=== PATIENT | male | born 1965 | race Caucasian/White ===

== ENCOUNTER 2021-08-26 00:55 | Inpatient (IN) | payer BC ==
[~2021-08-26] VITALS: Ht 177.8 cm; Wt 111.0 kg
[2021-08-26] MEDS ORDERED: dexamethasone sod phosphate 10mg/ml inj IV STA (01:22)
[2021-08-26] MEDS ORDERED: iohexol 350MG/ML 100ml bottle IV ONE (03:08)
[2021-08-26] MEDS ORDERED: HYDROcodone/acetaminophen 10/325mg tab PO PRN (03:20)
[2021-08-26] MEDS ORDERED: ondansetron 4mg rapidly disintigrating tab PO PRN (03:20)
[2021-08-26] MEDS ORDERED: ondansetron/PF 4mg/2ml inj IV PRN (03:20)
[2021-08-26] MEDS ORDERED: magnesium hydroxide 30ml (MOM) UD suspension PO PRN (03:20)
[2021-08-26] MEDS ORDERED: diphenhydrAMINE 50 mg/ml inj IV PRN (03:20)
[2021-08-26] MEDS ORDERED: mag hydrox/Alum hydrox/simeth 30ml oral suspension PO PRN (03:20)
[2021-08-26] MEDS ORDERED: diphenhydrAMINE 25mg capsule PO PRN (03:20)
[2021-08-26] MEDS ORDERED: acetaminophen 650mg rectal suppository RC PRN (03:20)
[2021-08-26] MEDS ORDERED: HYDROmorphone inj. 0.5 MG/0.5 ML DISP.SYRIN IV PRN (03:20)
[2021-08-26] MEDS ORDERED: HYDROcodone/acetaminophen 5mg/325mg tablet PO PRN (03:20)
[2021-08-26] MEDS ORDERED: acetaminophen 325mg tablet PO PRN ×2 (03:20)
[2021-08-26] MEDS ORDERED: bisacodyl 10mg suppository rectal RC PRN (03:20)
[2021-08-26] MEDS ORDERED: morphine 2 MG/ML inj. syringe IV PRN ×2 (03:20)
[2021-08-26 03:28] LABS: BASOPHILS % (AUTO) 0.7 % (0-1); EOSINOPHILS % (AUTO) 0 % (0-6); HEMATOCRIT 39.2 % (42.0-52.0); HEMOGLOBIN 13.4 g/dl (14.0-17.9); LYMPHOCYTES # (AUTO) 0.3 X10'3 (1.1-4.8); LYMPHOCYTES % (AUTO) 4.4 % (21-51); MEAN CORPUSCULAR HGB CONC 34.2 g/dL (33.0-36.5); MEAN CORPUSCULAR VOLUME 96.5 FL (78-98); MEAN PLATELET VOLUME 7.6 FL (7.4-10.4); MONOCYTES % (AUTO) 0.8 % (2-12); NEUTROPHILS # (AUTO) 5.9 X10'3 (1.8-7.7); NEUTROPHILS % (AUTO) 94.1 % (42-75); PLATELET COUNT 183 X10'3 (140-440); RED BLOOD COUNT 4.07 X10'6 (4.70-6.10); RED CELL DISTRIBUTION WIDTH 14.1 % (11.5-14.5); WHITE BLOOD COUNT 6.3 X10'3 (4.5-11.0)
[2021-08-26] MEDS: normal saline 1000ml 1,000 ML IV SCH ×3 (03:43→23:20)
[2021-08-26 03:51] LABS: ALANINE AMINOTRANSFERASE 50 U/L (12-78); ALBUMIN 2.8 G/DL (3.4-5.0); ALBUMIN/GLOBULIN RATIO 0.7 (1.1-1.5); ALKALINE PHOSPHATASE 75 IU/L (46-116); ANION GAP 13 (8-16); ASPARTATE AMINO TRANSFERASE 36 U/L (10-37); BILIRUBIN,TOTAL 0.6 MG/DL (0.1-1.0); BLOOD UREA NITROGEN 25 MG/DL (7-18); BUN/CREATININE RATIO 20.2 (5.4-32.0); CALCIUM 9.1 MG/DL (8.5-10.1); CHLORIDE 102 MMOL/L (99-107); CREATININE 1.24 MG/DL (0.60-1.10); GLUCOSE 147 MG/DL (70-104); POTASSIUM 3.3 MMOL/L (3.5-5.1); SODIUM 141 MMOL/L (135-145); TOTAL CARBON DIOXIDE 26.2 MMOL/L (24-32); TOTAL PROTEIN 7.1 G/DL (6.4-8.2); eGFR 60 ML/MIN
[2021-08-26 04:21] LABS: LACTATE DEHYDROGENASE 236 U/L (85-227)
[2021-08-26 04:28] LABS: APTT 31 SECONDS (22-32)
[2021-08-26 04:43] LABS: FERRITIN 1640 NG/ML (26-388)
[2021-08-26 04:44] LABS: C-REACTIVE PROTEIN 36.97 MG/DL (0.0-0.5)
[2021-08-26 04:45] VITALS: BP 121/83
[2021-08-26] MEDS ORDERED: LISI10TA27 PO (04:45)
[2021-08-26] MEDS ORDERED: ESCI20TA39 PO (04:45)
[2021-08-26] MEDS ORDERED: CHLO25TA10 PO (04:45)
[2021-08-26] MEDS ORDERED: ATOR20TA66 PO (04:45)
[2021-08-26] MEDS ORDERED: BUPR-317 PO (04:45)
[2021-08-26 05:02] LABS: TOTAL CELLS COUNTED 100
[2021-08-26 05:03] LABS: PLATELET ESTIMATE NORMAL
--- NOTE | 2021-08-26 05:35 | NUR ---
ARRIVED VIA W/C FROM ED AT 0445 AND AMBULATED TO THE BED. NOTABLY SOB AND PLACED ON 4L UNTIL O2 SATS AT 94%. PATIENT A&0X4, DENIES ANY PAIN. VITAL SIGNS WNL'S. CALL LIGHT EXPLAINED AND IN REACH OF PATIENT. URINAL GIVEN AND ENC'D TO USE IT.
[2021-08-26 06:00] LABS: HEMOGLOBIN A1C 5.7 % (4.5-6.2)
--- NOTE | 2021-08-26 06:50 | NUR ---
Patient in room ORTH[facility] 4024. I have received report from Joan MAURICIO and had the opportunity to ask questions and assume patient care.
--- NOTE | 2021-08-26 07:06 | NUR ---
Problems reprioritized. Patient report given, questions answered & plan of care reviewed with TIFFANIE MAURICIO.
[2021-08-26] MEDS ORDERED: potassium Cl 40MEQ/1/2NS 520ml 520 ML IV PRN ×3 (07:10→11:05)
[2021-08-26] MEDS ORDERED: potassium Cl 20 mEq SR tablet PO PRN ×3 (07:10→11:05)
[2021-08-26 07:27] LABS: LIPASE 118 U/L (73-393); MAGNESIUM 1.9 MG/DL (1.5-2.4); PHOSPHORUS 1.9 MG/DL (2.3-4.5)
[2021-08-26] MEDS: pantoprazole 40mg Tablet.DR PO SCH (07:30)
[2021-08-26] MEDS ORDERED: dexamethasone 4mg/ml inj IV SCH (08:00)
[2021-08-26] MEDS: K and/or MAG REPLACEMENT MC SCH ×3 (08:00→20:00)
[2021-08-26] MEDS: dexamethasone inj 8 MG in normal saline 50ml IV soln 50 ML IV SCH ×2 (08:50→20:09)
[2021-08-26] MEDS: docusate sod 100mg capsule PO SCH ×2 (08:51→20:09)
[2021-08-26] MEDS: enoxaparin 40mg/0.4ml syringe SUBCUT SCH ×2 (08:51→20:09)
[2021-08-26 10:00] VITALS: BP 106/79
[2021-08-26] MEDS ORDERED: magnesium Cl slow-release 64mg tablet PO PRN (11:05)
[2021-08-26] MEDS ORDERED: magnesium 4gm in 100ml NS 100 ML IV PRN (11:05)
[2021-08-26] MEDS ORDERED: REMDESIVIR INJ 200 MG in normal saline 100ml IV soln 100 ML IV ONE (11:05)
[2021-08-26] MEDS ORDERED: ALBUTEROL INHALER 1 PUFF/90 MCG INHALER IH PRN (11:10)
[2021-08-26] MEDS: azithromycin 250mg tablet PO SCH (11:15)
[2021-08-26] MEDS: benzonatate 100mg capsule PO PRN ×2 (11:16→21:16)
[2021-08-26] MEDS: CefTRIAXone/D5W-Rocephin 1gm 50 ML IV SCH (12:35)
[2021-08-26] MEDS: ALBUTEROL INHALER 1 PUFF/90 MCG INHALER IH PRN (12:40)
[2021-08-26 14:00] VITALS: BP 126/80
[2021-08-26] MEDS: potassium Cl 20 mEq SR tablet PO PRN ×2 (15:43→21:17)
[2021-08-26 18:00] VITALS: BP 136/76
[2021-08-26 21:35] VITALS: BP 153/81
[2021-08-27 02:00] VITALS: BP 122/82
[2021-08-27] MEDS: guaiFENesin/DM 10ml UD oral syrup PO PRN ×2 (03:05→19:29)
[2021-08-27] MEDS: normal saline 1000ml 1,000 ML IV SCH ×2 (03:05→19:20)
[2021-08-27 06:00] VITALS: BP 120/78
--- NOTE | 2021-08-27 06:25 | NUR ---
RECEIVED REPORT FROM ALISON, RN
[2021-08-27 07:24] LABS: EOSINOPHILS % (AUTO) 0 % (0-6); HEMATOCRIT 35.6 % (42.0-52.0); HEMOGLOBIN 12.2 g/dl (14.0-17.9); LYMPHOCYTES # (AUTO) 0.3 X10'3 (1.1-4.8)
[2021-08-27 07:25] LABS: BASOPHILS % (AUTO) 0.1 % (0-1); LYMPHOCYTES % (AUTO) 3.7 % (21-51); MEAN CORPUSCULAR HEMOGLOBIN 32.9 PG (27.0-31.0); MEAN CORPUSCULAR HGB CONC 34.2 g/dL (33.0-36.5); MEAN CORPUSCULAR VOLUME 96.1 FL (78-98); MEAN PLATELET VOLUME 8.4 FL (7.4-10.4); MONOCYTES # (AUTO) 0.1 X10'3 (0-0.9); MONOCYTES % (AUTO) 0.9 % (2-12); NEUTROPHILS # (AUTO) 8.5 X10'3 (1.8-7.7); NEUTROPHILS % (AUTO) 95.3 % (42-75); PLATELET COUNT 234 X10'3 (140-440); RED CELL DISTRIBUTION WIDTH 14.4 % (11.5-14.5); WHITE BLOOD COUNT 8.9 X10'3 (4.5-11.0)
[2021-08-27] MEDS: benzonatate 100mg capsule PO PRN (07:39)
[2021-08-27] MEDS: chlorthalidone 25mg tablet PO SCH (07:40)
[2021-08-27] MEDS: lisinopril 10 MG tablet PO SCH (07:40)
[2021-08-27] MEDS: azithromycin 250mg tablet PO SCH (07:40)
[2021-08-27] MEDS: atorvastatin 20mg tablet PO SCH (07:41)
[2021-08-27] MEDS: pantoprazole 40mg Tablet.DR PO SCH (07:41)
[2021-08-27] MEDS: docusate sod 100mg capsule PO SCH ×2 (07:41→19:16)
[2021-08-27] MEDS: ESCITALOPRAM OXALATE 5 MG TABLET PO SCH (07:42)
[2021-08-27] MEDS: dexamethasone inj 8 MG in normal saline 50ml IV soln 50 ML IV SCH ×2 (07:43→19:10)
[2021-08-27] MEDS: enoxaparin 40mg/0.4ml syringe SUBCUT SCH ×2 (07:46→19:17)
[2021-08-27 07:56] LABS: ALANINE AMINOTRANSFERASE 49 U/L (12-78); ALBUMIN 2.3 G/DL (3.4-5.0); ALBUMIN/GLOBULIN RATIO 0.5 (1.1-1.5); ALKALINE PHOSPHATASE 63 IU/L (46-116); ANION GAP 13 (8-16); ASPARTATE AMINO TRANSFERASE 32 U/L (10-37); BILIRUBIN,TOTAL 0.3 MG/DL (0.1-1.0); BLOOD UREA NITROGEN 25 MG/DL (7-18); BUN/CREATININE RATIO 25.3 (5.4-32.0); CALCIUM 8.3 MG/DL (8.5-10.1); CHLORIDE 105 MMOL/L (99-107); CHOLESTEROL 131 MG/DL (0-200); CREATININE 0.99 MG/DL (0.60-1.10); D-DIMER 0.78 MG/L FEU (0-0.50); GLUCOSE 125 MG/DL (70-104); HDL CHOLESTEROL 26 MG/DL (35-60); LACTATE DEHYDROGENASE 250 U/L (85-227); LDL CHOLESTEROL 66 MG/DL (50-100); MAGNESIUM 2.1 MG/DL (1.5-2.4); PHOSPHORUS 2.4 MG/DL (2.3-4.5); POTASSIUM 3.8 MMOL/L (3.5-5.1); SODIUM 141 MMOL/L (135-145); TOTAL CARBON DIOXIDE 22.9 MMOL/L (24-32); TOTAL PROTEIN 6.9 G/DL (6.4-8.2); TRIGLYCERIDES 95 MG/DL (20-135); eGFR 78 ML/MIN
[2021-08-27] MEDS ORDERED: REMDESIVIR INJ 100 MG in normal saline 100ml IV soln 100 ML IV SCH (08:00)
[2021-08-27] MEDS: K and/or MAG REPLACEMENT MC SCH ×4 (08:00→20:00)
[2021-08-27] MEDS ORDERED: buproprion 150mg XL (24-hour) tablet PO SCH (08:00)
[2021-08-27 08:20] LABS: C-REACTIVE PROTEIN 29.15 MG/DL (0.0-0.5)
[2021-08-27] MEDS: CefTRIAXone/D5W-Rocephin 1gm 50 ML IV SCH (08:37)
[2021-08-27 10:00] VITALS: BP 107/64
[2021-08-27 14:00] VITALS: BP 108/73
--- NOTE | 2021-08-27 18:28 | NUR ---
gave report to lenny mcpherson
[2021-08-27 18:37] VITALS: BP 114/73
[2021-08-27] MEDS: temazepam 15mg capsule PO PRN (19:29)
[2021-08-27 22:03] VITALS: BP 102/64
[2021-08-28 02:00] VITALS: BP 107/72
[2021-08-28] MEDS: normal saline 1000ml 1,000 ML IV SCH ×2 (05:50→15:23)
[2021-08-28 06:00] VITALS: BP 106/71
--- NOTE | 2021-08-28 06:25 | NUR ---
Patient in room ORTHO 4024B. I have received report from HANG CROCKETT and had the opportunity to ask questions and assume patient care.
[2021-08-28 07:44] LABS: BASOPHILS % (AUTO) 0.2 % (0-1); EOSINOPHILS % (AUTO) 0 % (0-6); HEMATOCRIT 34.3 % (42.0-52.0); HEMOGLOBIN 11.8 g/dl (14.0-17.9); LYMPHOCYTES # (AUTO) 0.3 X10'3 (1.1-4.8); LYMPHOCYTES % (AUTO) 5.2 % (21-51); MEAN CORPUSCULAR HEMOGLOBIN 33.1 PG (27.0-31.0); MEAN CORPUSCULAR HGB CONC 34.3 g/dL (33.0-36.5); MEAN CORPUSCULAR VOLUME 96.4 FL (78-98); MONOCYTES # (AUTO) 0.1 X10'3 (0-0.9); MONOCYTES % (AUTO) 2.2 % (2-12); NEUTROPHILS # (AUTO) 5.1 X10'3 (1.8-7.7); NEUTROPHILS % (AUTO) 92.4 % (42-75); PLATELET COUNT 282 X10'3 (140-440); RED BLOOD COUNT 3.56 X10'6 (4.70-6.10); RED CELL DISTRIBUTION WIDTH 14.7 % (11.5-14.5); WHITE BLOOD COUNT 5.6 X10'3 (4.5-11.0)
[2021-08-28] MEDS: K and/or MAG REPLACEMENT MC SCH ×3 (08:00→20:00)
[2021-08-28] MEDS: buPROPion SR 150mg tablet PO SCH (08:34)
[2021-08-28] MEDS: chlorthalidone 25mg tablet PO SCH (08:35)
[2021-08-28] MEDS: pantoprazole 40mg Tablet.DR PO SCH (08:36)
[2021-08-28] MEDS: atorvastatin 20mg tablet PO SCH (08:36)
[2021-08-28] MEDS: lisinopril 10 MG tablet PO SCH (08:36)
[2021-08-28] MEDS: dexamethasone inj 8 MG in normal saline 50ml IV soln 50 ML IV SCH ×2 (08:37→20:23)
[2021-08-28] MEDS: docusate sod 100mg capsule PO SCH ×2 (08:37→20:00)
[2021-08-28] MEDS: azithromycin 250mg tablet PO SCH (08:40)
[2021-08-28] MEDS: ESCITALOPRAM OXALATE 5 MG TABLET PO SCH (08:41)
[2021-08-28] MEDS: enoxaparin 40mg/0.4ml syringe SUBCUT SCH ×2 (08:43→20:23)
[2021-08-28] MEDS: CefTRIAXone/D5W-Rocephin 1gm 50 ML IV SCH (08:44)
[2021-08-28 09:02] LABS: ALANINE AMINOTRANSFERASE 73 U/L (12-78); ALBUMIN 2.1 G/DL (3.4-5.0); ALBUMIN/GLOBULIN RATIO 0.5 (1.1-1.5); ALKALINE PHOSPHATASE 62 IU/L (46-116); ANION GAP 11 (8-16); ASPARTATE AMINO TRANSFERASE 49 U/L (10-37); BILIRUBIN,TOTAL 0.3 MG/DL (0.1-1.0); BLOOD UREA NITROGEN 27 MG/DL (7-18); BUN/CREATININE RATIO 26.7 (5.4-32.0); C-REACTIVE PROTEIN 13.41 MG/DL (0.0-0.5); CALCIUM 8.3 MG/DL (8.5-10.1); CHLORIDE 107 MMOL/L (99-107); CREATININE 1.01 MG/DL (0.60-1.10); GLUCOSE 122 MG/DL (70-104); LACTATE DEHYDROGENASE 270 U/L (85-227); MAGNESIUM 2.4 MG/DL (1.5-2.4); PHOSPHORUS 2.7 MG/DL (2.3-4.5); POTASSIUM 3.8 MMOL/L (3.5-5.1); SODIUM 142 MMOL/L (135-145); TOTAL CARBON DIOXIDE 24.4 MMOL/L (24-32); TOTAL PROTEIN 6.2 G/DL (6.4-8.2); eGFR 76 ML/MIN
[2021-08-28 10:00] VITALS: BP 106/68
[2021-08-28 10:42] LABS: D-DIMER 0.91 MG/L FEU (0-0.50)
[2021-08-28 14:00] VITALS: BP 121/84
[2021-08-28] MEDS: ALBUTEROL INHALER 1 PUFF/90 MCG INHALER IH PRN (14:32)
--- NOTE | 2021-08-28 18:16 | NUR ---
Problems reprioritized. Patient report given, questions answered & plan of care reviewed with HANG ROSAS.
[2021-08-28 18:30] VITALS: BP 122/80
[2021-08-28] MEDS ORDERED: REMDESIVIR INJ 200 MG in normal saline 100ml IV soln 100 ML IV ONE ×4 (19:10)
--- NOTE | 2021-08-28 19:30 | NUR ---
pt refusing to get his remdesivir right now per pt he has more questions to ask first the infection control doctor.
[2021-08-28] MEDS: guaiFENesin/DM 10ml UD oral syrup PO PRN (20:23)
[2021-08-28] MEDS: temazepam 15mg capsule PO PRN (20:23)
[2021-08-28 22:00] VITALS: BP 114/71
[2021-08-29 02:00] VITALS: BP 117/78
[2021-08-29] MEDS: normal saline 1000ml 1,000 ML IV SCH ×3 (02:54→21:47)
[2021-08-29 06:00] VITALS: BP 125/84
--- NOTE | 2021-08-29 06:48 | NUR ---
Patient in room ORTHO 4024B. I have received report from HANG Marina and had the opportunity to ask questions and assume patient care.
[2021-08-29 07:39] LABS: BASOPHILS % (AUTO) 0.1 % (0-1); EOSINOPHILS % (AUTO) 0 % (0-6); HEMATOCRIT 34.5 % (42.0-52.0); HEMOGLOBIN 11.9 g/dl (14.0-17.9); LYMPHOCYTES # (AUTO) 0.3 X10'3 (1.1-4.8); LYMPHOCYTES % (AUTO) 6.8 % (21-51); MEAN CORPUSCULAR HEMOGLOBIN 33.2 PG (27.0-31.0); MEAN CORPUSCULAR HGB CONC 34.4 g/dL (33.0-36.5); MEAN CORPUSCULAR VOLUME 96.4 FL (78-98); MONOCYTES # (AUTO) 0.1 X10'3 (0-0.9); MONOCYTES % (AUTO) 3.7 % (2-12); NEUTROPHILS # (AUTO) 3.6 X10'3 (1.8-7.7); NEUTROPHILS % (AUTO) 89.4 % (42-75); PLATELET COUNT 335 X10'3 (140-440); RED BLOOD COUNT 3.58 X10'6 (4.70-6.10); RED CELL DISTRIBUTION WIDTH 14.7 % (11.5-14.5)
[2021-08-29 07:53] LABS: ALANINE AMINOTRANSFERASE 108 U/L (12-78); ALBUMIN/GLOBULIN RATIO 0.5 (1.1-1.5); ALKALINE PHOSPHATASE 62 IU/L (46-116); ANION GAP 10 (8-16); ASPARTATE AMINO TRANSFERASE 43 U/L (10-37); BILIRUBIN,TOTAL 0.3 MG/DL (0.1-1.0); BLOOD UREA NITROGEN 24 MG/DL (7-18); BUN/CREATININE RATIO 27.6 (5.4-32.0); C-REACTIVE PROTEIN 6.62 MG/DL (0.0-0.5); CALCIUM 8.2 MG/DL (8.5-10.1); CHLORIDE 108 MMOL/L (99-107); CREATININE 0.87 MG/DL (0.60-1.10); GLUCOSE 112 MG/DL (70-104); LACTATE DEHYDROGENASE 244 U/L (85-227); MAGNESIUM 2.4 MG/DL (1.5-2.4); PHOSPHORUS 2.9 MG/DL (2.3-4.5); POTASSIUM 3.9 MMOL/L (3.5-5.1); SODIUM 143 MMOL/L (135-145); TOTAL CARBON DIOXIDE 25.3 MMOL/L (24-32); TOTAL PROTEIN 5.9 G/DL (6.4-8.2); eGFR 90 ML/MIN
[2021-08-29] MEDS: K and/or MAG REPLACEMENT MC SCH ×2 (08:00→20:00)
[2021-08-29] MEDS: docusate sod 100mg capsule PO SCH ×2 (08:00→20:00)
[2021-08-29] MEDS ORDERED: REMDESIVIR INJ 100 MG in normal saline 100ml IV soln 100 ML IV SCH (08:00)
[2021-08-29] MEDS: dexamethasone inj 8 MG in normal saline 50ml IV soln 50 ML IV SCH ×2 (08:02→21:48)
[2021-08-29] MEDS: pantoprazole 40mg Tablet.DR PO SCH (08:04)
[2021-08-29] MEDS: lisinopril 10 MG tablet PO SCH (08:05)
[2021-08-29] MEDS: buPROPion SR 150mg tablet PO SCH (08:06)
[2021-08-29] MEDS: chlorthalidone 25mg tablet PO SCH (08:06)
[2021-08-29] MEDS: atorvastatin 20mg tablet PO SCH (08:06)
[2021-08-29] MEDS: enoxaparin 40mg/0.4ml syringe SUBCUT SCH ×2 (08:07→20:34)
[2021-08-29] MEDS: CefTRIAXone/D5W-Rocephin 1gm 50 ML IV SCH (08:08)
[2021-08-29] MEDS: ESCITALOPRAM OXALATE 5 MG TABLET PO SCH (08:17)
[2021-08-29 08:31] LABS: D-DIMER 1.36 MG/L FEU (0-0.50)
[2021-08-29 10:00] VITALS: BP 114/73
--- NOTE | 2021-08-29 10:54 | NUR ---
Page Accepted Message: CARLOS [id number]: CRISTIAN RUFF [id number]...PT STATES HE IS CURRENTLY DECREASING LEXAPRO, TAKES 15MG NOT 30MG...CAN YOU CHANGE ORDER? ALSO, INCREASE IN RESPIRATIONS 30-50, CAN I GET AN ORDER FOR MED TO CALM/ RELAX TO HELP WITH RESPIRATIONS? Custom Responses: Transaction number: [id number]
--- NOTE | 2021-08-29 13:53 | NUR ---
RELIEVING RN FOR LUNCH, PT IS RESTING QUIETLY ON BED, RESP EVEN AND UNLABORED, PLAYING ON PHONE
[2021-08-29 14:00] VITALS: BP 109/66
--- NOTE | 2021-08-29 18:23 | NUR ---
Problems reprioritized. Patient report given, questions answered & plan of care reviewed with HANG DE LOS SANTOS.
[2021-08-29 18:30] VITALS: BP 115/78
[2021-08-29] MEDS ORDERED: REMDESIVIR INJ 200 MG in normal saline 100ml IV soln 100 ML IV ONE ×2 (19:20→21:00)
[2021-08-29 22:23] VITALS: BP 125/82
[2021-08-30 02:00] VITALS: BP 119/77
[2021-08-30] MEDS: salt irrigation nasal spray 45 ML SPRAY NS PRN (03:32)
[2021-08-30 06:00] VITALS: BP 123/83
--- NOTE | 2021-08-30 06:19 | NUR ---
Report to Ok MAURICIO.
[2021-08-30 07:40] LABS: BASOPHILS % (AUTO) 0.3 % (0-1); EOSINOPHILS % (AUTO) 0 % (0-6); HEMATOCRIT 37.3 % (42.0-52.0); HEMOGLOBIN 12.4 g/dl (14.0-17.9); LYMPHOCYTES # (AUTO) 0.3 X10'3 (1.1-4.8); LYMPHOCYTES % (AUTO) 6.8 % (21-51); MEAN CORPUSCULAR HEMOGLOBIN 32.1 PG (27.0-31.0); MEAN CORPUSCULAR HGB CONC 33.3 g/dL (33.0-36.5); MEAN CORPUSCULAR VOLUME 96.5 FL (78-98); MEAN PLATELET VOLUME 8.5 FL (7.4-10.4); MONOCYTES # (AUTO) 0.1 X10'3 (0-0.9); MONOCYTES % (AUTO) 1.8 % (2-12); NEUTROPHILS % (AUTO) 91.1 % (42-75); PLATELET COUNT 406 X10'3 (140-440); RED BLOOD COUNT 3.86 X10'6 (4.70-6.10); RED CELL DISTRIBUTION WIDTH 14.2 % (11.5-14.5); WHITE BLOOD COUNT 4.4 X10'3 (4.5-11.0)
[2021-08-30] MEDS ORDERED: REMDESIVIR INJ 100 MG in normal saline 100ml IV soln 100 ML IV SCH (08:00)
[2021-08-30] MEDS: K and/or MAG REPLACEMENT MC SCH ×2 (08:00→19:56)
[2021-08-30 08:02] LABS: ALANINE AMINOTRANSFERASE 96 U/L (12-78); ALBUMIN 2.1 G/DL (3.4-5.0); ALBUMIN/GLOBULIN RATIO 0.6 (1.1-1.5); ALKALINE PHOSPHATASE 62 IU/L (46-116); ANION GAP 8 (8-16); ASPARTATE AMINO TRANSFERASE 40 U/L (10-37); BILIRUBIN,TOTAL 0.4 MG/DL (0.1-1.0); BLOOD UREA NITROGEN 21 MG/DL (7-18); BUN/CREATININE RATIO 23.1 (5.4-32.0); C-REACTIVE PROTEIN 3.55 MG/DL (0.0-0.5); CALCIUM 8.3 MG/DL (8.5-10.1); CHLORIDE 107 MMOL/L (99-107); CREATININE 0.91 MG/DL (0.60-1.10); GLUCOSE 100 MG/DL (70-104); LACTATE DEHYDROGENASE 245 U/L (85-227); MAGNESIUM 2.2 MG/DL (1.5-2.4); PHOSPHORUS 3.6 MG/DL (2.3-4.5); POTASSIUM 4.2 MMOL/L (3.5-5.1); SODIUM 141 MMOL/L (135-145); TOTAL CARBON DIOXIDE 26.4 MMOL/L (24-32); TOTAL PROTEIN 5.9 G/DL (6.4-8.2); eGFR 86 ML/MIN
[2021-08-30] MEDS: enoxaparin 40mg/0.4ml syringe SUBCUT SCH ×2 (08:21→19:39)
[2021-08-30] MEDS: dexamethasone inj 8 MG in normal saline 50ml IV soln 50 ML IV SCH ×2 (08:21→19:38)
[2021-08-30] MEDS: lisinopril 10 MG tablet PO SCH (08:24)
[2021-08-30] MEDS: ESCITALOPRAM OXALATE 5 MG TABLET PO SCH (08:25)
[2021-08-30] MEDS: atorvastatin 20mg tablet PO SCH (08:25)
[2021-08-30] MEDS: docusate sod 100mg capsule PO SCH ×2 (08:25→19:38)
[2021-08-30] MEDS: pantoprazole 40mg Tablet.DR PO SCH (08:25)
[2021-08-30] MEDS: chlorthalidone 25mg tablet PO SCH (08:25)
[2021-08-30] MEDS: buPROPion SR 150mg tablet PO SCH (08:25)
[2021-08-30] MEDS: CefTRIAXone/D5W-Rocephin 1gm 50 ML IV SCH (08:56)
[2021-08-30] MEDS: ALBUTEROL INHALER 1 PUFF/90 MCG INHALER IH PRN ×2 (09:37→15:14)
[2021-08-30 10:08] VITALS: BP 112/83
--- NOTE | 2021-08-30 11:50 | NUR ---
Initial: Pt admit DX COVID-19 and PNA per EMR. PO mostly ~75-100% avg Na-restricted meals w/ one day down to 50% avg overall partially meeting estimated needs using IBW pending scaled wt this admit. Pt on 8L high flow salter down from 10L prior per EMR. RD d/w RN regarding liberalizing to regular diet if MD agreeable given currently on Na-restricted diet w/ hx HTN however BP WNL this admit and receiving 100ml/hr NS in addition to chlorthalidone. Smoothie TIDWM added to meals for additional kcals/protein and ease of PO; dietary notified. LBM 08/29. No nutrition intervention needs at this time. Will continue to monitor. Rec: 1. liberalize to regular diet if MD agreeable; currently on Na-restricted receiving 100ml/hr NS and chlorthalidone w/ serum Na and BP WNL this admit 2. smoothie TIDWM for additional kcals/protein and ease of PO; change to additional proteins BIDLD if current PO trends persist and diet liberalized 3. routine bowel care 4. scaled wt this admit; subsequent weekly wts Addendum: 08/30/21 at [address] Amended: Links added.
[2021-08-30] MEDS: normal saline 1000ml 1,000 ML IV SCH ×2 (13:50→17:20)
[2021-08-30 14:00] VITALS: BP 112/70
[2021-08-30 18:00] VITALS: BP 127/83
--- NOTE | 2021-08-30 18:15 | NUR ---
Patient in room ORTHO 4024. I have received report from Ok MAURICIO and had the opportunity to ask questions and assume patient care.
--- NOTE | 2021-08-30 19:08 | NUR ---
per patient he is coughing up blood and he told me that Dr. Ferraro had ordered a sputum sample to check for bacteria. Will check orders and send one down if order is in place. Addendum: 08/30/21 at 1911 by Myra Denney RN Amended: Links added.
[2021-08-30] MEDS: guaiFENesin/DM 10ml UD oral syrup PO PRN (19:48)
[2021-08-30] MEDS: REMDESIVIR INJ 100 MG in normal saline 100ml IV soln 100 ML IV SCH (20:28)
[2021-08-30 22:01] VITALS: BP 128/88
[2021-08-31] MEDS: normal saline 1000ml 1,000 ML IV SCH ×2 (01:24→14:08)
[2021-08-31 02:00] VITALS: BP 123/82
[2021-08-31] MEDS: salt irrigation nasal spray 45 ML SPRAY NS PRN (04:09)
--- NOTE | 2021-08-31 04:09 | NUR ---
Pt has his nasal spray at bedside and has been using it about every 4 hours per patient for congestion.
[2021-08-31 06:00] VITALS: BP 118/78
--- NOTE | 2021-08-31 06:01 | NUR ---
Problems reprioritized. Patient report given, questions answered & plan of care reviewed with Ok MAURICIO.
[2021-08-31 06:27] LABS: EOSINOPHILS % (AUTO) 0 % (0-6); LYMPHOCYTES # (AUTO) 0.3 X10'3 (1.1-4.8); MONOCYTES # (AUTO) 0.1 X10'3 (0-0.9); NEUTROPHILS # (AUTO) 4.5 X10'3 (1.8-7.7); RED BLOOD COUNT 4.02 X10'6 (4.70-6.10); WHITE BLOOD COUNT 4.9 X10'3 (4.5-11.0)
[2021-08-31 06:30] LABS: BASOPHILS % (AUTO) 0.1 % (0-1); HEMATOCRIT 38.6 % (42.0-52.0); HEMOGLOBIN 13.2 g/dl (14.0-17.9); LYMPHOCYTES % (AUTO) 6.2 % (21-51); MEAN CORPUSCULAR HEMOGLOBIN 32.8 PG (27.0-31.0); MEAN CORPUSCULAR HGB CONC 34.2 g/dL (33.0-36.5); MEAN CORPUSCULAR VOLUME 96.1 FL (78-98); MEAN PLATELET VOLUME 8.3 FL (7.4-10.4); MONOCYTES % (AUTO) 1.7 % (2-12); PLATELET COUNT 495 X10'3 (140-440); RED CELL DISTRIBUTION WIDTH 14.3 % (11.5-14.5)
[2021-08-31 06:57] LABS: D-DIMER 2.49 MG/L FEU (0-0.50)
[2021-08-31 07:07] LABS: ALANINE AMINOTRANSFERASE 108 U/L (12-78); ALBUMIN 2.3 G/DL (3.4-5.0); ALBUMIN/GLOBULIN RATIO 0.6 (1.1-1.5); ALKALINE PHOSPHATASE 62 IU/L (46-116); ANION GAP 5 (8-16); ASPARTATE AMINO TRANSFERASE 30 U/L (10-37); BILIRUBIN,TOTAL 0.4 MG/DL (0.1-1.0); BLOOD UREA NITROGEN 24 MG/DL (7-18); BUN/CREATININE RATIO 24.7 (5.4-32.0); C-REACTIVE PROTEIN 2.24 MG/DL (0.0-0.5); CALCIUM 8.6 MG/DL (8.5-10.1); CHLORIDE 105 MMOL/L (99-107); CREATININE 0.97 MG/DL (0.60-1.10); GLUCOSE 103 MG/DL (70-104); LACTATE DEHYDROGENASE 245 U/L (85-227); MAGNESIUM 2.1 MG/DL (1.5-2.4); PHOSPHORUS 3.8 MG/DL (2.3-4.5); POTASSIUM 4.2 MMOL/L (3.5-5.1); SODIUM 140 MMOL/L (135-145); TOTAL CARBON DIOXIDE 29.6 MMOL/L (24-32); eGFR 80 ML/MIN
[2021-08-31] MEDS: dexamethasone inj 8 MG in dextrose 5%-water 100 ML IV SCH ×2 (07:46→21:11)
[2021-08-31] MEDS: buPROPion SR 150mg tablet PO SCH (07:47)
[2021-08-31] MEDS: atorvastatin 20mg tablet PO SCH (07:47)
[2021-08-31] MEDS: ESCITALOPRAM OXALATE 5 MG TABLET PO SCH (07:47)
[2021-08-31] MEDS: enoxaparin 30mg/0.3ml syringe SUBCUT SCH ×2 (07:47→21:12)
[2021-08-31] MEDS: enoxaparin 80mg/0.8ml syringe SUBCUT SCH ×2 (07:47→21:11)
[2021-08-31] MEDS: docusate sod 100mg capsule PO SCH ×2 (07:48→21:11)
[2021-08-31] MEDS: pantoprazole 40mg Tablet.DR PO SCH (07:48)
[2021-08-31] MEDS: chlorthalidone 25mg tablet PO SCH (07:48)
[2021-08-31] MEDS: lisinopril 10 MG tablet PO SCH (07:55)
[2021-08-31] MEDS: K and/or MAG REPLACEMENT MC SCH ×2 (08:00→20:00)
[2021-08-31] MEDS: ALBUTEROL INHALER 1 PUFF/90 MCG INHALER IH PRN (09:20)
[2021-08-31] MEDS: CefTRIAXone/D5W-Rocephin 1gm 50 ML IV SCH (09:35)
[2021-08-31 09:52] VITALS: BP 97/62
[2021-08-31 14:00] VITALS: BP 98/64
[2021-08-31 18:00] VITALS: BP 117/76
--- NOTE | 2021-08-31 18:33 | NUR ---
Patient in room ORTH[facility] 4024. I have received report from DANII MAURICIO and had the opportunity to ask questions and assume patient care.
[2021-08-31] MEDS: REMDESIVIR INJ 100 MG in normal saline 100ml IV soln 100 ML IV SCH (21:47)
[2021-08-31 22:00] VITALS: BP 108/62
[2021-09-01] MEDS: normal saline 1000ml 1,000 ML IV SCH ×2 (01:16→13:46)
[2021-09-01 02:00] VITALS: BP 98/49
--- NOTE | 2021-09-01 06:27 | NUR ---
Problems reprioritized. Patient report given, questions answered & plan of care reviewed with DANII MAURICIO.
[2021-09-01 06:36] VITALS: BP 120/78
[2021-09-01] MEDS: chlorthalidone 25mg tablet PO SCH (08:00)
[2021-09-01] MEDS: K and/or MAG REPLACEMENT MC SCH ×2 (08:00→20:00)
[2021-09-01] MEDS: lisinopril 10 MG tablet PO SCH (08:00)
[2021-09-01] MEDS: enoxaparin 30mg/0.3ml syringe SUBCUT SCH ×2 (08:45→20:27)
[2021-09-01] MEDS: enoxaparin 80mg/0.8ml syringe SUBCUT SCH ×2 (08:46→20:26)
[2021-09-01] MEDS: docusate sod 100mg capsule PO SCH ×2 (08:47→20:26)
[2021-09-01] MEDS: pantoprazole 40mg Tablet.DR PO SCH (08:48)
[2021-09-01] MEDS: atorvastatin 20mg tablet PO SCH (08:48)
[2021-09-01] MEDS: ESCITALOPRAM OXALATE 5 MG TABLET PO SCH (08:48)
[2021-09-01] MEDS: buPROPion SR 150mg tablet PO SCH (08:48)
[2021-09-01] MEDS: dexamethasone inj 8 MG in dextrose 5%-water 100 ML IV SCH ×2 (08:52→20:27)
[2021-09-01] MEDS: CefTRIAXone/D5W-Rocephin 1gm 50 ML IV SCH (09:42)
[2021-09-01 09:54] VITALS: BP 99/58
[2021-09-01 14:00] VITALS: BP 91/67
[2021-09-01 18:00] VITALS: BP 120/83
[2021-09-01] MEDS: REMDESIVIR INJ 100 MG in normal saline 100ml IV soln 100 ML IV SCH (21:19)
[2021-09-01 22:00] VITALS: BP 129/83
[2021-09-02] MEDS: normal saline 1000ml 1,000 ML IV SCH ×4 (01:05→21:05)
[2021-09-02 02:00] VITALS: BP 115/82
[2021-09-02 06:00] VITALS: BP 117/81
--- NOTE | 2021-09-02 06:32 | NUR ---
Problems reprioritized. Patient report given, questions answered & plan of care reviewed with CARLOS MAURICIO.
--- NOTE | 2021-09-02 06:55 | NUR ---
Patient in room ORTHO 4024B. I have received report from HANG MAN and had the opportunity to ask questions and assume patient care.
[2021-09-02] MEDS: K and/or MAG REPLACEMENT MC SCH ×2 (08:00→20:00)
[2021-09-02] MEDS: docusate sod 100mg capsule PO SCH ×2 (08:00→20:12)
[2021-09-02] MEDS: dexamethasone inj 8 MG in dextrose 5%-water 100 ML IV SCH ×2 (08:06→20:14)
[2021-09-02] MEDS: chlorthalidone 25mg tablet PO SCH (08:08)
[2021-09-02] MEDS: buPROPion SR 150mg tablet PO SCH (08:08)
[2021-09-02] MEDS: atorvastatin 20mg tablet PO SCH (08:09)
[2021-09-02] MEDS: lisinopril 10 MG tablet PO SCH (08:09)
[2021-09-02] MEDS: pantoprazole 40mg Tablet.DR PO SCH (08:09)
[2021-09-02] MEDS: ESCITALOPRAM OXALATE 5 MG TABLET PO SCH (08:12)
[2021-09-02] MEDS: enoxaparin 80mg/0.8ml syringe SUBCUT SCH ×2 (08:12→20:13)
[2021-09-02] MEDS: enoxaparin 30mg/0.3ml syringe SUBCUT SCH ×2 (08:13→20:13)
[2021-09-02] MEDS: CefTRIAXone/D5W-Rocephin 1gm 50 ML IV SCH (08:15)
[2021-09-02 10:00] VITALS: BP 111/72
--- NOTE | 2021-09-02 10:00 | NUR ---
Page Sent PAGER ID: [phone] MESSAGE: CARLOS [id number]-RE: [id number] CRISTIAN RUFF...CAN I ORDER CBC, CMP, DDIM, CRP, LDH? LAST SET WAS 08/31...THANK YOU:)
[2021-09-02 12:30] LABS: BASOPHILS # (AUTO) 0.1 X10'3 (0-0.2); BASOPHILS % (AUTO) 0.8 % (0-1); EOSINOPHILS % (AUTO) 0 % (0-6); HEMATOCRIT 39.4 % (42.0-52.0); HEMOGLOBIN 13.3 g/dl (14.0-17.9); LYMPHOCYTES # (AUTO) 0.3 X10'3 (1.1-4.8); LYMPHOCYTES % (AUTO) 2.9 % (21-51); MEAN CORPUSCULAR HEMOGLOBIN 32.5 PG (27.0-31.0); MEAN CORPUSCULAR HGB CONC 33.7 g/dL (33.0-36.5); MEAN CORPUSCULAR VOLUME 96.4 FL (78-98); MEAN PLATELET VOLUME 8.2 FL (7.4-10.4); MONOCYTES # (AUTO) 0.1 X10'3 (0-0.9); NEUTROPHILS # (AUTO) 8.5 X10'3 (1.8-7.7); NEUTROPHILS % (AUTO) 95.3 % (42-75); PLATELET COUNT 593 X10'3 (140-440); RED BLOOD COUNT 4.09 X10'6 (4.70-6.10); RED CELL DISTRIBUTION WIDTH 14.5 % (11.5-14.5); WHITE BLOOD COUNT 8.9 X10'3 (4.5-11.0)
[2021-09-02 12:41] LABS: D-DIMER 1.09 MG/L FEU (0-0.50)
[2021-09-02 12:47] LABS: ALANINE AMINOTRANSFERASE 119 U/L (12-78); ALBUMIN 2.4 G/DL (3.4-5.0); ALBUMIN/GLOBULIN RATIO 0.7 (1.1-1.5); ALKALINE PHOSPHATASE 62 IU/L (46-116); ANION GAP 9 (8-16); ASPARTATE AMINO TRANSFERASE 32 U/L (10-37); BILIRUBIN,TOTAL 0.3 MG/DL (0.1-1.0); BLOOD UREA NITROGEN 25 MG/DL (7-18); BUN/CREATININE RATIO 26.9 (5.4-32.0); C-REACTIVE PROTEIN 0.78 MG/DL (0.0-0.5); CALCIUM 8.4 MG/DL (8.5-10.1); CHLORIDE 103 MMOL/L (99-107); CREATININE 0.93 MG/DL (0.60-1.10); GLUCOSE 91 MG/DL (70-104); LACTATE DEHYDROGENASE 262 U/L (85-227); POTASSIUM 4.3 MMOL/L (3.5-5.1); SODIUM 138 MMOL/L (135-145); TOTAL PROTEIN 5.8 G/DL (6.4-8.2); eGFR 84 ML/MIN
[2021-09-02 14:00] VITALS: BP 104/64
--- NOTE | 2021-09-02 18:29 | NUR ---
Problems reprioritized. Patient report given, questions answered & plan of care reviewed with HANG ROSAS.
[2021-09-02 18:40] VITALS: BP 115/65
--- NOTE | 2021-09-02 18:41 | NUR ---
1834 PRINCIPAL WEB DEVELOPER CALLED PT HAD 12 BEATS RUN OF V-TACH.VS CHECKED AND RECORDED..AFEBRILE.DENIES CP.PAGED DR. FELDMAN.
[2021-09-02] MEDS: REMDESIVIR INJ 100 MG in normal saline 100ml IV soln 100 ML IV SCH (20:59)
[2021-09-02 22:00] VITALS: BP 112/75
[2021-09-03 02:00] VITALS: BP 97/50
[2021-09-03 06:00] VITALS: BP 107/69
--- NOTE | 2021-09-03 06:26 | NUR ---
Patient in room ORTH[facility] 4024B. I have received report from lenny Marina and had the opportunity to ask questions and assume patient care.
[2021-09-03 08:00] VITALS: BP 99/65
[2021-09-03] MEDS: K and/or MAG REPLACEMENT MC SCH ×2 (08:09→19:43)
[2021-09-03] MEDS: dexamethasone inj 8 MG in dextrose 5%-water 100 ML IV SCH ×2 (08:16→19:21)
[2021-09-03] MEDS: enoxaparin 30mg/0.3ml syringe SUBCUT SCH ×2 (08:17→19:21)
[2021-09-03] MEDS: atorvastatin 20mg tablet PO SCH (08:17)
[2021-09-03] MEDS: CefTRIAXone/D5W-Rocephin 1gm 50 ML IV SCH (08:17)
[2021-09-03] MEDS: enoxaparin 80mg/0.8ml syringe SUBCUT SCH ×2 (08:17→19:21)
[2021-09-03] MEDS: lisinopril 10 MG tablet PO SCH (08:18)
[2021-09-03] MEDS: pantoprazole 40mg Tablet.DR PO SCH (08:18)
[2021-09-03] MEDS: buPROPion SR 150mg tablet PO SCH (08:18)
[2021-09-03] MEDS: docusate sod 100mg capsule PO SCH ×2 (08:18→19:43)
[2021-09-03] MEDS: chlorthalidone 25mg tablet PO SCH (08:18)
[2021-09-03] MEDS: ESCITALOPRAM OXALATE 5 MG TABLET PO SCH (08:18)
[2021-09-03 08:31] LABS: BASOPHILS % (AUTO) 0.3 % (0-1); EOSINOPHILS % (AUTO) 0 % (0-6); HEMATOCRIT 40.1 % (42.0-52.0); HEMOGLOBIN 13.4 g/dl (14.0-17.9); LYMPHOCYTES # (AUTO) 0.4 X10'3 (1.1-4.8); LYMPHOCYTES % (AUTO) 4.4 % (21-51); MEAN CORPUSCULAR HEMOGLOBIN 32.4 PG (27.0-31.0); MEAN CORPUSCULAR HGB CONC 33.5 g/dL (33.0-36.5); MEAN CORPUSCULAR VOLUME 96.8 FL (78-98); MEAN PLATELET VOLUME 8.6 FL (7.4-10.4); MONOCYTES # (AUTO) 0.1 X10'3 (0-0.9); MONOCYTES % (AUTO) 0.9 % (2-12); NEUTROPHILS # (AUTO) 7.9 X10'3 (1.8-7.7); NEUTROPHILS % (AUTO) 94.4 % (42-75); PLATELET COUNT 571 X10'3 (140-440); RED BLOOD COUNT 4.15 X10'6 (4.70-6.10); RED CELL DISTRIBUTION WIDTH 14.7 % (11.5-14.5); WHITE BLOOD COUNT 8.4 X10'3 (4.5-11.0)
[2021-09-03 09:07] LABS: ALANINE AMINOTRANSFERASE 115 U/L (12-78); ALBUMIN 2.2 G/DL (3.4-5.0); ALBUMIN/GLOBULIN RATIO 0.6 (1.1-1.5); ALKALINE PHOSPHATASE 54 IU/L (46-116); ANION GAP 10 (8-16); ASPARTATE AMINO TRANSFERASE 29 U/L (10-37); BILIRUBIN,TOTAL 0.4 MG/DL (0.1-1.0); BLOOD UREA NITROGEN 24 MG/DL (7-18); BUN/CREATININE RATIO 27.9 (5.4-32.0); CALCIUM 8.3 MG/DL (8.5-10.1); CHLORIDE 106 MMOL/L (99-107); CREATININE 0.86 MG/DL (0.60-1.10); GLUCOSE 84 MG/DL (70-104); POTASSIUM 4.4 MMOL/L (3.5-5.1); SODIUM 141 MMOL/L (135-145); TOTAL CARBON DIOXIDE 25.2 MMOL/L (24-32); TOTAL PROTEIN 5.8 G/DL (6.4-8.2); eGFR > 90 ML/MIN
[2021-09-03 09:11] LABS: LACTATE DEHYDROGENASE 209 U/L (85-227)
[2021-09-03 09:42] LABS: D-DIMER 1.35 MG/L FEU (0-0.50)
[2021-09-03 09:52] LABS: LARGE PLATELETS FEW; PLATELET ESTIMATE INCREASED
[2021-09-03 09:53] LABS: BURR CELLS 1+; ROULEAUX 1+
[2021-09-03 10:38] VITALS: BP 102/64
[2021-09-03 18:00] VITALS: BP 104/68
--- NOTE | 2021-09-03 18:29 | NUR ---
Problems reprioritized. Patient report given, questions answered & plan of care reviewed with HANG CROCKETT.
[2021-09-03 22:00] VITALS: BP 93/54
[2021-09-04 02:00] VITALS: BP 111/67
[2021-09-04 06:37] VITALS: BP 123/80
[2021-09-04] MEDS ORDERED: APIX5TAB3 PO (06:43)
[2021-09-04] MEDS ORDERED: ALBU6.7H9 IH (06:43)
[2021-09-04] MEDS ORDERED: DEC4T PO (06:43)
[2021-09-04 07:44] VITALS: BP_SYST 118
[2021-09-04] MEDS: docusate sod 100mg capsule PO SCH (07:44)
[2021-09-04] MEDS: lisinopril 10 MG tablet PO SCH (07:44)
[2021-09-04] MEDS: pantoprazole 40mg Tablet.DR PO SCH (07:44)
[2021-09-04] MEDS: ESCITALOPRAM OXALATE 5 MG TABLET PO SCH (07:45)
[2021-09-04] MEDS: buPROPion SR 150mg tablet PO SCH (07:45)
[2021-09-04] MEDS: chlorthalidone 25mg tablet PO SCH (07:45)
[2021-09-04] MEDS: enoxaparin 30mg/0.3ml syringe SUBCUT SCH (07:46)
[2021-09-04] MEDS: enoxaparin 80mg/0.8ml syringe SUBCUT SCH (07:46)
[2021-09-04] MEDS: atorvastatin 20mg tablet PO SCH (07:59)
[2021-09-04] MEDS ORDERED: dexamethasone 4mg/ml inj IV SCH (08:00)
[2021-09-04] MEDS ORDERED: dexamethasone inj 6 MG in dextrose 5%-water 100 ML IV SCH (08:00)
[2021-09-04 08:48] LABS: BASOPHILS % (AUTO) 0.1 % (0-1); EOSINOPHILS % (AUTO) 0 % (0-6); HEMATOCRIT 38.2 % (42.0-52.0); LYMPHOCYTES # (AUTO) 0.3 X10'3 (1.1-4.8); LYMPHOCYTES % (AUTO) 3.9 % (21-51); MEAN CORPUSCULAR HEMOGLOBIN 32.6 PG (27.0-31.0); MEAN PLATELET VOLUME 8.4 FL (7.4-10.4); MONOCYTES # (AUTO) 0.1 X10'3 (0-0.9); MONOCYTES % (AUTO) 1.7 % (2-12); NEUTROPHILS # (AUTO) 7.9 X10'3 (1.8-7.7); NEUTROPHILS % (AUTO) 94.3 % (42-75); PLATELET COUNT 554 X10'3 (140-440); RED BLOOD COUNT 3.98 X10'6 (4.70-6.10); RED CELL DISTRIBUTION WIDTH 15.1 % (11.5-14.5); WHITE BLOOD COUNT 8.4 X10'3 (4.5-11.0)
[2021-09-04 09:00] LABS: D-DIMER 0.59 MG/L FEU (0-0.50)
[2021-09-04 09:18] LABS: ALANINE AMINOTRANSFERASE 99 U/L (12-78); ALBUMIN 2.3 G/DL (3.4-5.0); ALBUMIN/GLOBULIN RATIO 0.7 (1.1-1.5); ALKALINE PHOSPHATASE 54 IU/L (46-116); ANION GAP 7 (8-16); ASPARTATE AMINO TRANSFERASE 24 U/L (10-37); BILIRUBIN,TOTAL 0.4 MG/DL (0.1-1.0); BLOOD UREA NITROGEN 25 MG/DL (7-18); BUN/CREATININE RATIO 26.9 (5.4-32.0); C-REACTIVE PROTEIN 0.35 MG/DL (0.0-0.5); CALCIUM 8.6 MG/DL (8.5-10.1); CHLORIDE 102 MMOL/L (99-107); CREATININE 0.93 MG/DL (0.60-1.10); GLUCOSE 98 MG/DL (70-104); LACTATE DEHYDROGENASE 220 U/L (85-227); POTASSIUM 4.4 MMOL/L (3.5-5.1); SODIUM 136 MMOL/L (135-145); TOTAL CARBON DIOXIDE 27.5 MMOL/L (24-32); TOTAL PROTEIN 5.4 G/DL (6.4-8.2); eGFR 84 ML/MIN
--- NOTE | 2021-09-04 09:53 | NUR ---
Reassessment: PO mostly ~100% avg intake Na-restricted meals and TIDWM smoothies, meeting estimated needs. Smoothie change to BIDBD to meals, dietary notified. LBM 08/31. No nutrition intervention needs at this time. Will continue to monitor. Rec: 1. liberalize to regular diet if MD agreeable; currently on Na-restricted receiving chlorthalidone w/ serum Na and BP WNL to low this admit 2. smoothie BIDBD for additional kcals/protein and ease of PO 3. routine bowel care 4. scaled wt this admit; subsequent weekly wts Addendum: 09/04/21 at 0954 by Ricky Lopez Continuous Improvement Facilitator RD Amended: Links added. Addendum: 09/04/21 at [address] I have read and agree w/ assessment by Continuous Improvement Facilitator
--- NOTE | 2021-09-04 12:34 | NUR ---
Dr. Chawla rounding at 10:50, discussed the patient probably not qualifying for home O2. Retested patient and he failed to qualify for home O2. Patient aware of discharge and is going to get his matters in order. Will continue to monitor
== END 2021-09-04 13:50 | disposition home or self-care (01) | DRG 177 ==
LOC: ER 00:57 → ED HOLD 03:27 → ORTHO 4S 04:46
PROVIDERS: ADMIT Family Medicine; ATTEND Family Medicine
PROC: B32T1ZZ Computerized Tomography (CT Scan) of Left Pulmonary Artery using Low Osmolar Contrast (ICD-10-PCS; 2021-08-26)
PROC: B3201ZZ Computerized Tomography (CT Scan) of Thoracic Aorta using Low Osmolar Contrast (ICD-10-PCS; 2021-08-26)
PROC: B32S1ZZ Computerized Tomography (CT Scan) of Right Pulmonary Artery using Low Osmolar Contrast (ICD-10-PCS; 2021-08-26)
PROC: 5A0945A Assistance with Respiratory Ventilation, 24-96 Consecutive Hours, High Flow/Velocity Cannula (ICD-10-PCS; 2021-08-27)
PROC: XW033E5 Introduction of Remdesivir Anti-infective into Peripheral Vein, Percutaneous Approach, New Technology Group 5 (ICD-10-PCS; principal; 2021-08-29)
PROC: 5A0935A Assistance with Respiratory Ventilation, Less than 24 Consecutive Hours, High Flow/Velocity Cannula (ICD-10-PCS; 2021-08-29)
PROC: 5A0935A Assistance with Respiratory Ventilation, Less than 24 Consecutive Hours, High Flow/Velocity Cannula (ICD-10-PCS; 2021-08-30)
PROC: 5A0945A Assistance with Respiratory Ventilation, 24-96 Consecutive Hours, High Flow/Velocity Cannula (ICD-10-PCS; 2021-08-31)
DX: U07.1 COVID-19 (principal); J12.82 Pneumonia due to coronavirus disease 2019; J96.01 Acute respiratory failure with hypoxia; E43 Unspecified severe protein-calorie malnutrition; J15.9 Unspecified bacterial pneumonia; D68.9 Coagulation defect, unspecified; D72.810 Lymphocytopenia; N28.9 Disorder of kidney and ureter, unspecified; E66.01 Morbid (severe) obesity due to excess calories; E78.5 Hyperlipidemia, unspecified; F32.A Depression, unspecified; F41.9 Anxiety disorder, unspecified; E86.1 Hypovolemia; E87.6 Hypokalemia; I10 Essential (primary) hypertension; Z68.35 Body mass index [BMI] 35.0-35.9, adult; Z79.01 Long term (current) use of anticoagulants; Z79.899 Other long term (current) drug therapy
CPT/HCPCS: 36415; 71045; 71275; 80053; 80061; 82728; 83036; 83605; 83615; 83690; 83735; 83880; 84100; 84145; 84443; 84484; 85007; 85008; 85025; 85379; 85384; 85610; 85730; 86140; 87040; 87081; 93005; 93306; 94640; 94760; 96374; 97110; 97116; 97161; 97530; 99285; G0378; J0696; J1100; J1650; J2270; J3490; J7030; J7060; Q9967